=== PATIENT | male | born 1950 | race Caucasian/White ===

== ENCOUNTER → 2020-04-02 10:42 | Outpatient (CLI) | payer MEDICARE, BC, SELFPAY ==
--- NOTE | ~2020-04-02 | XR_ITS ---
EXAMINATION: XR knee RT 3V DATE: 04/02/2020 11:05 INDICATION: Right knee pain. Fall. TECHNIQUE: 3 views of right knee were obtained. COMPARISON: Right knee radiographs 04/07/2019 FINDINGS: There is a total right knee arthroplasty with patellar resurfacing in near-anatomic alignme nt. No fracture. No periprosthetic lucency to suggest loosening or infection. No knee joint effusion. IMPRESSION: 1. Total right knee arthroplasty in near-anatomic alignment. Reviewed, dictated and finalized at location A.
== END ==
PROVIDERS: PCP Physician Assistant; Visit Provider Physician Assistant
DX: M25.561 Pain in right knee (principal)
CPT/HCPCS: 73562

== ENCOUNTER → 2021-04-17 09:04 | Outpatient (CLI) | payer MEDICARE, BC, SELFPAY ==
--- NOTE | ~2021-04-17 | XR_ITS ---
XR chest 2V DATE: 04/17/2021 09:30 INDICATION: Productive cough for 2 months TECHNIQUE: 2 views COMPARISON: 02/10/2018 two-view chest FINDINGS: Cardiomegaly. Aortic calcification. No pulmonary infiltrate or consolidation, pleural effus ion or pulmonary vascular congestion or pneumothorax. Degenerative spurring of the thoracic spine. Mild thoracic dextroscoliosis. IMPRESSION: Cardiomegaly No active pulmonary disease Reviewed, dictated and finalized at location A.
== END ==
PROVIDERS: PCP Physician Assistant; Visit Provider Physician Assistant
DX: R05 Cough (principal); I51.7 Cardiomegaly
CPT/HCPCS: 71046

== ENCOUNTER → 2021-05-17 12:17 | Outpatient (CLI) | payer MEDICARE, BC, SELFPAY ==
--- NOTE | ~2021-05-17 | XR_ITS ---
EXAMINATION: XR chest 2V DATE: 05/17/2021 12:34 INDICATION: Cough TECHNIQUE: PA and lateral views of the chest are obtained. COMPARISON: 04/17/2021 FINDINGS: The lungs are free of acute opacities. There is no pleural effusion or pneumothorax. Cardio megaly is noted. There are bridging osteophytes at multiple levels in the spine, consistent with diff use idiopathic skeletal hyperostosis (DISH). IMPRESSION: 1. No acute cardiopulmonary abnormality. Reviewed, dictated and finalized at location B.
== END ==
PROVIDERS: PCP Physician Assistant; Visit Provider Physician Assistant
DX: R05 Cough (principal); I51.7 Cardiomegaly
CPT/HCPCS: 71046